=== PATIENT | male | born 1970 | race African-American/Black ===

== ENCOUNTER 2023-11-15 13:17 | Emergency (ER) | payer OTHER ==
[~2023-11-15] VITALS: Ht 182.9 cm; Wt 114.0 kg
[2023-11-15 13:20] VITALS: BP 118/92; PULSE 85; TEMP 98.7; O2SAT 99
== END 2023-11-15 15:33 | disposition left against medical advice (07) ==
LOC: ER 13:17
DX: S01.81XA Laceration without foreign body of other part of head, initial encounter (principal); Z53.21 Procedure and treatment not carried out due to patient leaving prior to being seen by health care provider; X58.XXXA Exposure to other specified factors, initial encounter; Y93.89 Activity, other specified; Y92.89 Other specified places as the place of occurrence of the external cause; Y99.8 Other external cause status